=== PATIENT | female | born 1985 | race Caucasian/White ===

== ENCOUNTER 2025-01-29 20:19 | Emergency (ER) | payer OTHER ==
[~2025-01-29] VITALS: Ht 170.2 cm; Wt 45.4 kg
[2025-01-30] MEDS ORDERED: METR500 PO (10:23)
[2025-01-30] MEDS ORDERED: DOXY100 PO (10:23)
== END 2025-01-30 01:03 | disposition home or self-care (01) ==
LOC: ER 20:19
DX: R51.9 Headache, unspecified (principal); M54.2 Cervicalgia; M54.50 Low back pain, unspecified; V58.5XXA Driver of pick-up truck or van injured in noncollision transport accident in traffic accident, initial encounter
CPT/HCPCS: 70450; 72125; 72131; 99285-25; A9270

== ENCOUNTER 2025-01-30 02:07 | Emergency (ER) | payer OTHER ==
[~2025-01-30] VITALS: Ht 170.2 cm; Wt 45.4 kg
[2025-01-30 08:46] LABS: Source, Urine Clean Catch
[2025-01-30 08:58] LABS: Bilirubin, Urine Neg (Neg); Color, Urine Yellow (P-Yellow); Glucose Qualitative, Urine Neg (Neg); Ketones, Urine 3+ (Neg); Leukocyte Esterase, Urine 3+ (Neg); Protein, Urine 2+ (Neg); Specific Gravity, Urine 1.010 (1.003-1.022); Urobilinogen, Urine 2+ (Normal)
[2025-01-30] MEDS ORDERED: CefTRIAXone 1000 MG Vial IM ONE (09:05)
[2025-01-30] MEDS ORDERED: Lidocaine HCl 1% 2 ML SDV XX ONE (10:00)
[2025-01-30 10:07] LABS: Candida Group, PCR NOT DETECTED (NOT DETECT); Candida glabrata-krusei, PCR NOT DETECTED (NOT DETECT)
[2025-01-30 10:15] LABS: Bacterial Vaginosis PCR Positive (NEGATIVE)
[2025-01-30] MEDS ORDERED: OxyCODONE 5 mg/Acetamin 325 mg TABLET PO ONE (10:15)
[2025-01-30] MEDS ORDERED: DOXY100 PO ×2 (10:23→10:34)
[2025-01-30] MEDS ORDERED: METR500 PO ×2 (10:23→10:34)
[2025-01-30 10:38] LABS: Chlamydia Trachomatis Vaginal NOT DETECTED (NOT DETECT); Neisseria Gonorrhoea Vaginal NOT DETECTED (NOT DETECT)
== END 2025-01-30 10:41 | disposition home or self-care (01) ==
LOC: ER 02:07
PROVIDERS: Emergency Medicine
DX: N76.0 Acute vaginitis (principal)
CPT/HCPCS: 81001; 81025; 81515; 87086; 87491; 87591; 99283; A9270; J0696

== ENCOUNTER 2025-06-26 17:01 | Emergency (ER) | payer OTHER ==
[~2025-06-26] VITALS: Ht 170.2 cm; Wt 54.4 kg
[~2025-06-26 17:01] MED LIST: DOXY100 PO; METR500 PO
[2025-06-26] MEDS ORDERED: NS 1,000 ML IV SCH (17:20)
[2025-06-26] MEDS ORDERED: Folic Acid 1 MG TAB PO ONE (17:20)
[2025-06-26] MEDS ORDERED: LORazepam 2 MG/ML 1ML Injection IV ONE ×2 (17:20→18:30)
[2025-06-26] MEDS ORDERED: DULOXETINE HCL60 M1 PO (17:40)
[2025-06-26] MEDS ORDERED: MECL12.5 PO (17:40)
[2025-06-26] MEDS ORDERED: Inderal40 MG PO (17:41)
[2025-06-26] MEDS ORDERED: HYDHCL25 PO (17:42)
[2025-06-26 17:43] LABS: BASOPHILS ABSOLUTE AUTO 0.04 K/mm3 (0.00-0.23); BASOPHILS PERCENT AUTO 1 % (0-2); EOSINOPHILS ABSOLUTE AUTO 0.04 K/mm3 (0.00-0.68); EOSINOPHILS PERCENT AUTO 1 % (0-6); Hematocrit 39.8 % (33.0-51.0); Hemoglobin 13.6 g/dL (11.5-16.0); IMMATURE GRAN ABSOLUTE AUTO 0.01 K/mm3 (0.00-0.10); IMMATURE GRAN PERCENT AUTO 0 % (0-1); LYMPHOCYTES ABSOLUTE AUTO 1.84 K/mm3 (0.84-5.20); LYMPHOCYTES PERCENT AUTO 51 % (21-46); MONOCYTES ABSOLUTE AUTO 0.40 K/mm3 (0.16-1.47); MONOCYTES PERCENT AUTO 11 % (4-13); Mean Corpuscular HGB Conc 34.2 g/dL (31.5-36.5); Mean Corpuscular Volume 86 fL (80-100); NEUTROPHILS ABSOLUTE AUTO 1.30 K/mm3 (1.96-9.15); NEUTROPHILS PERCENT AUTO 36 % (41-73); NRBC ABSOLUTE 0.00 K/mm3 (0.00-0.02); NRBC Auto 0.0 /100 WBC (0.0-0.2); Platelet Count 248 K/mm3 (150-400); RDW Coefficient Variation 14.2 % (11.7-14.2); RDW Standard Deviation 44.7 fL (35.1-46.3)
[2025-06-26 18:05] LABS: Alanine Aminotransfer (ALT/SGP 98.0 U/L (12-78); Albumin, Blood 4.1 g/dL (3.4-5.0); Albumin/Globulin Ratio 1.1 (0.8-1.8); Anion Gap 15.0 mmol/L (3-11); Aspartate Aminotrans (AST/SGOT 104.0 U/L (12-37); Bilirubin, Total 0.3 mg/dL (0.1-1.0); Blood Urea Nitrogen 10.0 mg/dL (8-24); CO2, Blood 21.0 mmol/L (21-32); Calcium, Blood 8.1 mg/dL (8.5-10.1); Chloride, Blood 105.0 mmol/L (98-108); Creatinine, Blood 0.46 mg/dL (0.40-1.00); Ethanol (Alcohol), Blood, Med 280.0 mg/dL; Globulin, Blood 3.9 g/dL (2.2-4.0); Glucose, Blood 82.0 mg/dL (70-99); Magnesium, Blood 2.3 mg/dL (1.6-2.4); Phosphorus, Blood 2.3 mg/dL (2.5-4.9); Potassium, Blood 3.8 mmol/L (3.5-5.5); Sodium, Blood 137.0 mmol/L (136-145); Total Protein, Blood 8.0 g/dL (6.4-8.2)
== END 2025-06-26 20:45 | disposition home or self-care (01) ==
LOC: ER 17:01
PROVIDERS: Emergency Medicine
DX: F10.939 Alcohol use, unspecified with withdrawal, unspecified (principal); Y90.8 Blood alcohol level of 240 mg/100 ml or more; Z79.2 Long term (current) use of antibiotics
CPT/HCPCS: 80053; 80320; 83735; 84100; 85025; 93005; 93010; 96361; 96374; 99285-25; A9270; J2060; J2560; J7030